=== PATIENT | female | born 2005 | race Hispanic/Latino ===

== ENCOUNTER 2025-09-05 15:28 | Emergency (ER) | payer MEDICAID, SELFPAY ==
[2025-09-05 15:44] VITALS: BP 119/74; PULSE 90; RESP 18; TEMP 36.7; O2SAT 100; BMI 38.0
--- NOTE | 2025-09-05 15:48 | XR_ITS ---
Examination: CT abdomen and pelvis without contrast. Coronal 3-D reconstructions. Sagittal 2-D reconstructions. Date and time of exam: September 05, 2025, 1857 hours INDICATIONS: Lower abdominal pain mid abdominal pain beginning today CTDI: vol (mGy): 16.4 DLP: (mGycm): 992 Technique: Axial images of the abdomen have been obtained, 3 mm slice thickness Intravenous contrast material has not been administered. Low dose protocols were performed. One or more of the following dose reduction techniques were used; automated exposure control, adjustment of the mA and/or KV according to patient size, use of iterative reconstruction technique. Findings: No focal liver or splenic lesions No gallstones No pancreatic or adrenal mass No renal or ureteral calculi, no hydronephrosis Aorta normal size Small lymph nodes in the right lower mesentery Normal appendix No bowel obstruction No diverticulitis The osseous structures are intact IMPRESSION: No focal liver lesion No renal or ureteral calculi, no hydronephrosis Normal appendix No bowel obstruction or diverticulitis No pelvic mass
--- NOTE | 2025-09-05 15:48 | PD.EDRME ---
Rapid Medical Screening Exam E Arrival date/time: 09/05/25 15:28 20-year-old female with no known medical history presents to the emergency room with a chief complaint of 10 out of 10 diffuse abdominal pain and vomiting x 1 day I have greeted and performed a focused initial assessment of this patient. A comprehensive ED assessment and evaluation of the patient, analysis of all test results, and completion of the medical decision making process will be conducted by additional ED providers. Chief Complaint: Abdominal Pain Time Seen by Provider: 09/05/25 15:44 Vital signs: Vital Signs Temperature 98.0 F 09/05/25 15:44 Pulse Rate 90 09/05/25 15:44 Respiratory Rate 18 09/05/25 15:44 Blood Pressure 119/74 09/05/25 15:44 Pulse Oximetry (%) 100 09/05/25 15:44 Oxygen Delivery Method Room Air 09/05/25 15:44 Vital signs reviewed by provider: Yes Exam: 10 out of 10 abdominal pain with palpation. Patient has pain to the right lower quadrant right upper quadrant and left lower quadrant with palpation Patient has clear bilateral lung sounds. Clinical Impression: Appendicitis/gastroenteritis/food poisoning/
[2025-09-05] MEDS: ONDANSETRON ODT 4 MG TABRAP PO (15:55)
[2025-09-05 16:39] LABS: Basophils # (Auto) 0.0 Thou/mm3 (0.0-0.2); Basophils % (Auto) 0 % (0-2.5); Eosinophils # (Auto) 0.1 Thou/mm3 (0.0-0.5); Eosinophils % (Auto) 1 % (0-10); Hematocrit 42.9 % (36.0-46.0); Hemoglobin 14.0 g/dL (12.0-16.0); Immature Granulocytes Auto 0.07 Thou/mm3 (0.00-0.00); Lymphocytes # (Auto) 3.0 Thou/mm3 (1.0-4.8); Lymphocytes % (Auto) 19 % (10-50); Mean Corpuscular HGB Conc 32.6 g/dl (31.0-37.0); Mean Corpuscular Hemoglobin 28.3 pg (25.0-35.0); Mean Corpuscular Volume 87 fL (80-100); Monocytes # (Auto) 0.9 Thou/mm3 (0.0-0.8); Monocytes % (Auto) 6 % (0-12); Neutrophils # (Auto) 11.7 Thou/mm3 (1.8-7.7); Neutrophils % (Auto) 74 % (37-80); Nucleated Red Blood Cell # 0.00 Thou/mm3 (0.00-0.00); Nucleated Red Blood Cell % 0 /100 WBC (0); Platelet Count 290 Thou/mm3 (140-440); RDW Standard Deviation 40.4 fL (36.4-46.3); Red Blood Count 4.95 Miln/mm3 (4.00-5.20); White Blood Count 15.8 Thou/mm3 (3.6-11.0)
[2025-09-05 16:55] LABS: Alanine Aminotransferase 45 U/L (10-49); Albumin, Serum 4.6 gm/dL (3.5-5.0); Albumin/Globulin Ratio 2.3 (1.2-2.2); Alkaline Phosphatase 81 U/L (46-116); Anion Gap 9 (7-16); Aspartate Amino Transferase 30 U/L (0-34); BUN/Creatinine Ratio 16 Ratio (12-20); Bilirubin,Total 0.9 mg/dL (0.3-1.2); Blood Urea Nitrogen 13 mg/dL (9-23); Calcium 8.8 mg/dL (8.3-10.6); Calcium (Corrected) 8.8 mg/dL (8.5-10.1); Carbon Dioxide 24.6 mMol/L (20.0-31.0); Chloride 107 mMol/L (98-107); Creatinine (Component) 0.8 mg/dL (0.6-1.3); Estimated Creatinine Clearance 152.0 mL/min (>60); Globulin 2.0 gm/dL (2.3-3.5); Glucose 122 mg/dL (74-106); Lipase 28 U/L (12-53); Osmolality,Calculated 282 (275-295); Potassium 4.2 mMol/L (3.4-5.1); Sodium 141 mMol/L (136-145); Total Protein 6.6 gm/dL (5.7-8.2); eGFR > 60 See Note
[2025-09-05 16:59] LABS: Collection Type, Urine Clean Catch
[2025-09-05 17:09] LABS: Bacteria,Urine Rare; Bilirubin,Urine Negative (Negative); Blood,Urine Negative (Negative); Color,Urine Yellow (Lt Yel-Yel); Glucose, Urine Negative (Negative); Ketones,Urine Trace (Negative); Leukocyte Esterase,Urine Positive (Negative); Nitrite,Urine Negative (Negative); PH,Urine 6.0 (5.0-7.0); Protein,Urine 1+ (Neg - Trace); RBC,Urine 10 /hpf (0-3); Specific Gravity,Urine 1.032 (1.001-1.035); Squamous Epithelial Cell,Urine 4 /hpf (0-5); Urobilinogen,Urine Negative mg/dL (0.0-1.0); WBC,Urine 6 /hpf (0-5)
[2025-09-05 17:14] LABS: HCG Qualitative,Urine Negative
[2025-09-05 17:27] LABS: Clarity,Urine Hazy (Clear/Hazy)
--- NOTE | 2025-09-05 18:34 | PC.NURSE ---
CALL CT RE: WHEN THEY WILL TAKE PT. NO ANSWER. WILL CONT TRYING.
--- NOTE | 2025-09-05 19:51 | PD.EDABDPN ---
ED Abdominal Pain RME/HPI General Chief Complaint: Abdominal Pain Stated complaint: SHARP ABD PAIN (08/18) W/ VOMITING Time seen by provider: 09/05/25 15:44 Arrival date/time: 09/05/25 15:28 RME / HPI RME / HPI narrative: 09/05/25 15:28 20-year-old female with no known medical history presents to the emergency room with a chief complaint of 10 out of 10 diffuse abdominal pain and vomiting x 1 day I have greeted and performed a focused initial assessment of this patient. A comprehensive ED assessment and evaluation of the patient, analysis of all test results, and completion of the medical decision making process will be conducted by additional ED providers. DR. PENA MAIN ED EVALUATION: Patient presenting with onset of periumbilical abdominal pain x approximately 11 AM, described as sharp with a burning component increasing during the early hours of the afternoon with several bouts of non-bloody emesis. Reports chills, although denies definite fever. No urinary frequency, urgency, or dysuria. PMH: Migraine, Childhood Asthma, Obesity PSH: Non-contributory Allergies: None Social: Non-smoker, Non-drinker, No illicit drug abuse Exam: 10 out of 10 abdominal pain with palpation. Patient has pain to the right lower quadrant right upper quadrant and left lower quadrant with palpation Patient has clear bilateral lung sounds. Impression: Appendicitis/gastroenteritis/food poisoning/ Related Data Home Medications ?Medication ?Instructions ?Recorded ?Confirmed vits no.124-ferrous fum 1 tab PO QDAY 12/15/23 04/23/24 27 mg iron-folic acid 800 mcg tablet ( Vitamin) Previous Rx's ?Medication ?Instructions ?Recorded hydrocodone 5 mg-acetaminophen 325 1 tab PO Q8H PRN pain #14 tabs 09/05/25 mg tablet promethazine 12.5 mg tablet 12.5 mg PO TID PRN nausea and 09/05/25 vomiting #14 tabs Allergies Allergy/AdvReac Type Severity Reaction Status Date / Time No Known Allergies Allergy Unverified 09/05/25 15:30 Review of Systems Review of Systems Systems Reviewed: All systems reviewed, normal except as documented Past Medical History Past Medical History NEUROLOGIC: Positive Migraine RESPIRATORY: Positive Asthma GASTROINTESTINAL: Positive Obesity REPRODUCTIVE: Positive Previous Pregnancies OTHER HISTORY: Positive Chicken Pox ED Exam Narrative Physical exam: GEN. APPEARANCE: The patient is alert awake oriented X-3 under no distress, lying down comfortably, appears slightly pale c/o abdominal pain. Patient has good eye contact. Patient is cooperative. VITALS: All vitals were reviewed and the pulse ox is 100%, which is normal according to my interpretation HEENT: Normocephalic, atraumatic and nontender. Pupils are equal and reactive. Oral mucosa is moist. NECK: Supple, nontender, no meningismus, no JVD. There is no thyromegaly and no lymphadenopathy. CHEST: Nontender on palpation no deformity and no crepitus. CARDIOVASCULAR: Heart regular rhythm, no murmur or gallop rub or extra beats. LUNGS: Clear to auscultation bilaterally with symmetrical chest rise. No laboring tachypnea or wheezing. No intercostal subcostal retraction. No rales and no rhonchi. ABDOMEN: Soft, flat, TTP of umbilicus, no ventral wall defect, no guarding or acute peritoneal findings. There are no abnormal masses palpated. No pulsatile masses or bruits. Active and normal bowel sounds. EXTREMITIES: Normal inspection and palpation. No edema. No cyanosis. Patient is able to move all 4 extremities well SKIN: Warm and dry, no rashes noted. MUSCULOSKELETAL: No lumbar or midline bony tenderness. There is no CVA tenderness. No paraspinal muscle spasm or tenderness. NEURO: Cranial nerves II through XII grossly intact. There are no focal neurologic deficits noted. GCS is 15 PSYCHIATRIC: Patient is in normal mood and affect, cooperative. LYMPHATICS: No major lymphadenopathy noted. Course Quality Measures none Orders Category Date Time Status CT abdomen pelvis wo con Stat Exams 09/05/25 15:48 Completed CBC Stat Lab 09/05/25 16:24 Completed CMP [Comprehensive Metabolic Panel] Stat Lab 09/05/25 16:24 Completed HCG Qualitative,Urine Stat Lab 09/05/25 16:54 Completed Lipase Stat Lab 09/05/25 16:24 Completed UA [Urinalysis] Stat Lab 09/05/25 16:54 Completed Urine Culture Stat Lab 09/05/25 16:54 Received DiphenhydrAMINE INJ [Benadryl Inj] Med 09/05/25 21:11 Once 50 mg IVP X1 ONE Morphine* Inj Med 09/05/25 20:00 Discontinued 4 mg IVP X1 ONE Ondansetron Odt [Zofran Odt] Med 09/05/25 15:48 Discontinued 4 mg PO X1 ONE Prochlorperazine Inj [Compazine Inj] Med 09/05/25 19:59 Discontinued 5 mg IV X1 ONE Sodium Chloride 0.9% 1000 ml [Ns] 1,000 ml Med 09/05/25 19:59 Discontinued IV 999 mls/hr Vital Signs Vital signs: Vital Signs Temperature 98.0 F 09/05/25 15:44 Pulse Rate 90 09/05/25 15:44 Respiratory Rate 18 09/05/25 15:44 Blood Pressure 119/74 09/05/25 15:44 Pulse Oximetry (%) 100 09/05/25 15:44 Oxygen Delivery Method Room Air 09/05/25 15:44 Abdominal Pain MDM MDM Narrative MDM Narrative:: Scribe Attestation: IClaudia, am scribing for and in the presence of Dr. Pena. Provider Notation: Although this document has been carefully reviewed, there may still be some phonetic and other typographical errors. These errors are purely grammatical due to imperfections in the software program and should not be construed in any way to compromise the substance of the patient's medical care during this visit. Patient presenting with onset of periumbilical abdominal pain x approximately 11 AM, described as sharp with a burning component increasing during the early hours of the afternoon with several bouts of non-bloody emesis. Reports chills, although denies definite fever. Please see PE findings. Laboratory markers including CBC demonstrate elevated WBC of 15.8, hemoglobin at 14, no left shift or bandemia. Serum chemistries essentially unremarkable. UA with equivocal evidence of UTI. Patient hydrated with normal saline to correct volume deficit. Patient was treated with low-dose narcotic analgesics/anti-emetic with mild moderate relief. Patient became quite anxious and experienced a panic episodes which appears to have resolved. Suspect viral illness, possibly mesenteric adenitits. Will treat symptomatically and discharge to home with precautionary instructions. Patient data External records reviewed:: [facility] previous records (Reviewed prior ED records from 10/02/23. Patient was seen for Vaginal bleeding in .) Clinical information provided by:: patient Social determinants that could affect healthcare access:: none Patient has the following chronic illnesses:: Migraine, Obesity, Asthma How is presenting disease/condition affected by chronic disease/condition?: exacerbated by Evaluation data The following diagnostics were reviewed and interpreted by me:: lab results and radiology exam(s) Lab and/or radiology exams considered but not ordered:: None Interpretation Summary: RADIOLOGY Abdomen/Pelvis CT: Findings: No focal liver or splenic lesions No gallstones No pancreatic or adrenal mass No renal or ureteral calculi, no hydronephrosis Aorta normal size Small lymph nodes in the right lower mesentery Normal appendix No bowel obstruction No diverticulitis The osseous structures are intact IMPRESSION: No focal liver lesion No renal or ureteral calculi, no hydronephrosis Normal appendix No bowel obstruction or diverticulitis No pelvic mass Medications / Prescriptions Medications or Prescriptions considered but not ordered:: None Medication administrations:: Medication Administration History Diphenhydramine HCl (Diphenhydramine Inj 50 Mg/Ml Vial) 50 mg IVP X1 ONE Stop: 09/05/25 21:12 Last Admin: 09/05/25 21:18 Dose: Not Given Documented By: LAMINE Non-Admin Reason: Patient Refused Discontinued Medications Sodium Chloride (Ns) 1,000 mls @ 999 mls/hr IV .Q1H1M ONE Stop: 09/05/25 20:59 Last Infusion: 09/05/25 21:19 Dose: 999 mls/hr Documented By: Admin: 09/05/25 20:40 Dose: 999 mls/hr Documented By: LAMINE Morphine Sulfate (Morphine Sulf Inj 4 Mg/Ml Vial) 4 mg IVP X1 ONE Stop: 09/05/25 20:01 Last Admin: 09/05/25 20:40 Dose: 4 mg Documented By: LAMINE Ondansetron HCl (Ondansetron Odt 4 Mg Tabrap) 4 mg PO X1 ONE; Protocol Stop: 09/05/25 15:49 Last Admin: 09/05/25 15:55 Dose: 4 mg Documented By: MAYUR Prochlorperazine Edisylate (Prochlorperazine Inj 5 Mg/Ml Vial 2 Ml) 5 mg IV X1 ONE; Protocol Stop: 09/05/25 20:00 Last Admin: 09/05/25 20:39 Dose: 5 mg Documented By: LAMINE See above if any Consultations Consultation(s) initiated? (list below): No Diagnosis Differential diagnosis abdominal pain: abdominal pain, constipation, diverticulitis, endometriosis, gastroenteritis, small bowel obstruction and other (UTI, Cystitis) Most likely diagnosis given after review of the tests above:: Acute mesenteric adenitis Admission Indicated Admission indicated?: not indicated Explain why admission is indicated or not indicated:: Patient does not meet admission criteria Admission Request Was there a request for admission?: No Disposition Plan Disposition Plan: Discharge Discharge Attestation Discharge Attestation: The patient and all family members were given an opportunity to ask questions and understood the discharge instructions. Discharge instructions specifically effects, indications for sooner follow up or return to the emergency department, and the expected course of current diagnosis. Patient condition: Stable Discharge Plan Plan Patient Disposition: HOME (Self Care) Discharge Disposition comment: stable Prescriptions/Referrals Prescriptions/Med Rec: New hydrocodone-acetaminophen 5-325 mg tablet 1 tab PO Q8H MDD 3 tab PRN (Reason: pain) Qty: 14 0RF promethazine 12.5 mg tablet 12.5 mg PO TID PRN (Reason: nausea and vomiting) Qty: 14 0RF No Action Vitamin 27 mg iron- 800 mcg Tablet 1 tab PO QDAY Referrals: No Primary/Family,Physician [Primary Care Provider] - In 1 week Problem List Clinical Impression: Acute mesenteric adenitis Patient/Caregiver Discharge Instructions Discharge Activity: activity as tolerated Diet Instructions: Clear liquid diet x 24 hours and advance as tolerated. Education Materials: ED Adenitis, Mesenteric Additional Instructions: Clear liquid diet x 24 to 48 hours and advance as tolerated. Medication as directed. Follow-up with primary care doctor in 3 to 5 days as needed return if worsening i.e. fevers escalating abdominal pain persistent vomiting or worsening illness. Print Language: [place] Stand Alone Forms: [employer] Info., Patient Portal Info Letter
[2025-09-05] MEDS: PROCHLORPERAZINE INJ 5 MG/ML VIAL 2 ML IV (20:39)
[2025-09-05] MEDS: MORPHINE SULF INJ 4 MG/ML VIAL IVP (20:40)
[2025-09-05] MEDS: SODIUM CHLORIDE 0.9% 1000 ML 1,000 ML 999 ML IV (20:40)
--- NOTE | 2025-09-05 21:08 | PC.NURSE ---
pt haveing anxiety reaction to the IV in her arm and wants it out. 500cc ns was administered. IV removed per pt request.
--- NOTE | 2025-09-05 21:17 | PC.NURSE ---
jpts feeling of anxiety gone after iv removed. aware and will DC.
== END 2025-09-05 21:58 | disposition home or self-care (01) ==
PROVIDERS: Nurse Practitioner Family; Emergency Provider Emergency Medicine
DX: A05.9 Bacterial foodborne intoxication, unspecified (principal)
CPT/HCPCS: 36415; 74176; 80053; 81001; 81025; 83690; 85025; 87086; 96374; 99283; J0780; J2270; J7030; Q0162